=== PATIENT | male | born 1960 | race Caucasian/White ===

== ENCOUNTER 2017-09-08 09:53 | Inpatient (IN) | payer OTHER ==
[~2017-09-08] VITALS: Ht 175.3 cm; Wt 101.0 kg
--- NOTE | 2017-09-08 10:11 | NUR ---
PT TO ROOM FOR EXAM
--- NOTE | 2017-09-08 10:27 | NUR ---
PT SEEN BY EDP, LEFT FOOT EDEMATOUS AND REDDENED.
[2017-09-08] MEDS ORDERED: FOLIC ACID1 MG PO (11:07)
[2017-09-08] MEDS ORDERED: GABAPENTIN600 MG PO (11:08)
[2017-09-08] MEDS ORDERED: SINGULAIR10 MG PO (11:08)
[2017-09-08] MEDS ORDERED: PERCOCET 10/31 COMBO PO (11:09)
[2017-09-08] MEDS ORDERED: TAMSULOSIN HCL0.4 MG PO (11:10)
[2017-09-08] MEDS ORDERED: MELATONIN10 M3 PO (11:10)
[2017-09-08] MEDS ORDERED: ASPIRIN81 MG PO (11:11)
[2017-09-08] MEDS ORDERED: XALATAN0.005 % OU (11:12)
[2017-09-08] MEDS ORDERED: MUPIROCIN2 % EX (11:13)
[2017-09-08] MEDS ORDERED: NICOTINE S21 MG/24 H TOP (11:13)
[2017-09-08] MEDS ORDERED: KURIC2 % EX (11:14)
[2017-09-08] MEDS ORDERED: SILVADENE1 % EX (11:15)
[2017-09-08] MEDS ORDERED: FLOVENT HF110 MCG/AC IN (11:15)
[2017-09-08] MEDS ORDERED: VENTOLIN HFA IN (11:16)
[2017-09-08] MEDS ORDERED: LANTUS100 UNIT/M SC (11:16)
[2017-09-08] MEDS ORDERED: NOVOLOG100 UNIT/M SC (11:17)
[2017-09-08] MEDS ORDERED: VALIUM5 MG PO (11:18)
[2017-09-08 11:20] LABS: HEMATOCRIT 41.1 % (39.0-50.0); HEMOGLOBIN 13.4 g/dl (14.0-18.0); IMMATURE GRANULOCYTES 0.3 % (0.0-1.0); MEAN CELL VOLUME 85.3 fL CALC (80.0-100.0); MEAN CORPUSCULAR HGB 27.8 pG CALC (26.0-32.0); MEAN CORPUSCULAR HGB CONC 32.6 g/L CALC (32.0-36.0); NEUT# 3.38 thou/uL (1.82-7.42); RED BLOOD COUNT 4.82 mill/uL (4.70-6.10); RED CELL DISTRI WIDTH 14.7 % (11.5-15.5)
[2017-09-08 11:35] LABS: ALKALINE PHOSPHATASE 236 u/l (38-126); ANION GAP 19 (6-22 (CALC)); BILIRUBIN, TOTAL 0.4 mg/dL (0.0-1.4); BUN 12 mg/dL (9-20); BUN/CREATININE RATIO 23 (12-20 (CALC)); CARBON DIOXIDE 26 mmol/l (22-30); CHLORIDE 100 mmol/l (95-108); CREATININE 0.5 mg/dL (0.7-1.3); GFR > 60 ML/MIN (>=60 (CALC)); GFR FOR AFR.AMER. > 60 ML/MIN (>=60 (CALC)); GLUCOSE 244 mg/dL (75-110); POTASSIUM 4.7 mmol/l (3.5-5.1); SGOT/AST 29 u/l (17-59); SGPT/ALT 20 u/l (21-72); SODIUM 140 mmol/l (137-146); TOTAL PROTEIN 8.4 g/dL (6.3-8.2)
--- NOTE | 2017-09-08 12:42 | NUR ---
SBAR PRINTED TO FLOOR
[2017-09-08 13:15] VITALS: BP 145/86
--- NOTE | 2017-09-08 13:19 | NUR ---
PT ARRIVED VIA STRETCHER ACCOMPANIED BY STAFF.
--- NOTE | 2017-09-08 13:25 | NUR ---
pt taken TO ROOM 284 WITHOUT INCIDENT, REPORT WAS TO JORGE LUIS.
--- NOTE | 2017-09-08 14:12 | NUR ---
S: LISBET RIVERA is a 56 M who presents with osteomyelitis. He has a history of nodules on lungs, COPD, enlarged prostate, diabetic neuropathy, glaucoma. All medications in patient's chart were reviewed. O: VS: BP 161/89, P 89, RR 18, T 98.1 W 101 kg, HT 69 in, Scr= 0.5, CrCl= 139.1 A: There are no blood or urine cultures on file. P: Patient is on Zosyn 3.375g IV Q6H dose. Vancomycin ordered for pharmacy to dose. Start Vancomycin 1250mg IV Q8H. Vancomycin trough is drawn before the 4th dose on 09/09/17 at 1530. Vancomycin goal trough is between 15-20 mcg/ml. Pharmacy will follow and or advise on antibiotics use as needed.
--- NOTE | 2017-09-08 15:00 | NUR ---
ASSESSMENT IS COMPLETED. SKIN IS INTACT. NO REDNESS. LEFT FOOT HAS +4 PITTING EDEMA NOTED. PICTURES OBTAINED. IV SITE IS FREE FROM REDNESS OR EDEMA. PT INQUIRING ABOUT HIS MEDICATIONS EXPLAINED THAT HOSPITAL POLICY DOES NOT ALLOW US TO KEEP IN THE ROOM VRBALIZED UNDERSTANDING.
--- NOTE | 2017-09-08 16:40 | NUR ---
Saw Pt for med education rounds. Pt complains of neuropathy, restless leg syndrome, and pain. Pt insists he should be on oxycodone for pain and diazepam for anxiety. Pt has a morphine pump attached to his torso. Pt states that he regularly experiences hypoglycemia and subsequent hyperglycemia. Pt was educated on the importance of diabetic control especially with regards to neuropathy and diabetic foot. Pt explains that he is on a sliding scale insulin and takes his BG before meals. Pt was concerned about his leather bag. Pt was told it is in a safe. IVELISSE Gonzalez, was alerted for pt's expressed want for additional medications and went to go talk to him. Pt has no further questions or concerns.
[2017-09-08 16:42] LABS: URINE BILIRUBIN - DIPSTICK NEGATIVE (NEGATIVE); URINE BLOOD DIPSTICK NEGATIVE (NEGATIVE); URINE COLOR YELLOW; URINE GLUCOSE - DIPSTICK 500 mg/dL (NEGATIVE); URINE KETONE NEGATIVE (NEGATIVE); URINE LEUK ESTERASE NEGATIVE (Negative); URINE NITRITE - DIPSTICK NEGATIVE (Negative); URINE PH 6.5 (4.5-8.0); URINE PROTEIN - DIPSTICK NEGATIVE (NEG-TRACE); URINE UROBILINOGEN - DIPSTICK 0.2 E.U./dL (0.2)
[2017-09-08 16:44] LABS: URINE CLARITY CLEAR
[2017-09-08 16:45] LABS: BARBITURATES NEGATIVE (NEGATIVE); COCAINE NEGATIVE (NEGATIVE); METHADONE NEGATIVE (NEGATIVE); OXCYCODONE POSITIVE (NEGATIVE); TETRAHYDROCANNABIONOL NEGATIVE (NEGATIVE); TRICYLIC ANTIDEPRESSANTS NEGATIVE (NEGATIVE)
--- NOTE | 2017-09-08 18:00 | NUR ---
PT IS CURRENTLY IN THE BED AND NO DISTRESS NOTED. IV SITE IS FREE FROM REDNESS OR EDEMA.
[2017-09-08 19:12] VITALS: BP 159/91
--- NOTE | 2017-09-08 19:30 | NUR ---
PT SITTING UP IN BED WATCHING TV. PT IS ALERT AND ORIENTED X3. PERRLA. RESP ARE EVEN AND UNLABORED. NO DISTRESS NOTED. LUNGS ARE CLEAR. HR REGULAR. PULSES PALPABLE THROUGHOUT. NO EDEMA NOTED. BS ACTIVE. PT REPORTS A NOMRAL BM EARLIER TODAY. #22 RFA WITH NS @125ML/HR INFUSING. NO REDNESS OR EDEMA NOTED. WILL CONTINUE TO MONITOR
[2017-09-09] VITALS (11 sets, daily range): BP systolic 140–184; BP diastolic 73–107
--- NOTE | 2017-09-09 | NUR ---
PT RESTING IN BED WITH EYES CLOSED. RESP ARE EVEN AND UNLABORED. NO DISTRESS NOTED. WILL CONTINUE TO MONITOR
--- NOTE | 2017-09-09 04:00 | NUR ---
PT RESTING IN BED WITH EYES CLOSED. RESP ARE EVEN AND UNLABORED. NO DISTRESS NOTED. WILL CONTINUE TO MONTIOR
--- NOTE | 2017-09-09 07:30 | NUR ---
PATIENT IS ALERT AND ORIENTED X3. PUPILS ARE BRISK. PATIENT STATES HE HAS HISTORY OF GLAUCOMA, SLIGHT HAZE NOTED OVER BOTH EYES. HEART SOUNDS AND RHYTHYM ARE REGULAR. RADIAL PULSES ARE STRONG. IV SITE IS FREE OF REDNESS AND EDEMA. BOWEL SOUNDS ARE ACTIVE,LAST BOWEL MOVEMENT 09/08/17. ABDOMEN IS SOFT, MORPHINE PUMP TO LEFT SIDE OF ABDOMEN. PATIENT HAS SWELLING AND REDNESS TO LEFT FOOT WITH 3+ PITTING EDEMA. MULTIPLE SMALL WOUNDS ON LEFT FOOT NOTED TO DORSAL SURFACE AND ARCH, NO DRAINAGE. MID PLANTAR REGION WITH ONE OPEN AREA APPROXIMATELY BRITNEY SIZED, NO DRAINAGE. PATIENT STATES HE HAS PAIN IN LEFT FOOT THAT SOMETIMES RADIATES UP HIS MAGANA RATING 6/10. PATIENT MEDICATED WITH PERCOCET BY MANUFACTURING ENGINEER ASSEMBLY AND DEPARTMENT HEAD, TAM WHALEN. PATIENT HAS WEAK PEDAL PULSE IN LEFT FOOT. RIGHT FOOT DRESSING DRY AND INTACT. PATIENT STATED HE WOULD LIKE TO SHOWER TODAY. PATIENT HAS NO NEEDS OR CONCERNS AT THIS TIME. BED IS IN LOWEST POSITION, SRX2, WHEELS ARE LOCKED, CALL LIGHT WITHIN REACH. INFORMED PATIENT TO CALL FOR ANY NEED. WILL CONTINUE TO MONITOR.
[2017-09-09 07:52] LABS: HEMATOCRIT 38.7 % (39.0-50.0); HEMOGLOBIN 12.3 g/dl (14.0-18.0); IMMATURE GRANULOCYTES 0.2 % (0.0-1.0); MEAN CELL VOLUME 86.6 fL CALC (80.0-100.0); MEAN CORPUSCULAR HGB 27.5 pG CALC (26.0-32.0); MEAN CORPUSCULAR HGB CONC 31.8 g/L CALC (32.0-36.0); NEUT# 3.87 thou/uL (1.82-7.42); RED BLOOD COUNT 4.47 mill/uL (4.70-6.10); RED CELL DISTRI WIDTH 14.7 % (11.5-15.5)
--- NOTE | 2017-09-09 07:55 | NUR ---
ASSESSMETN IS COMPLTED: NO DISTRESS NOTED. IV SITE IS FREE FROM REDNESS OR EDEMA. DRESSING ON R FOOT IS CDI. LEFT FOOT IS OPEN TO AIR. ABD IS SOFT WITH PRESENCE OF THE MORPHINE PUMP. CONTINUE TO OBSERVE AND MONITOR.
[2017-09-09 08:01] LABS: ANION GAP 13 (6-22 (CALC)); BUN 12 mg/dL (9-20); BUN/CREATININE RATIO 18 (12-20 (CALC)); CALCIUM 9.5 mg/dL (8.4-10.2); CARBON DIOXIDE 32 mmol/l (22-30); CHLORIDE 101 mmol/l (95-108); CREATININE 0.6 mg/dL (0.7-1.3); GFR > 60 ML/MIN (>=60 (CALC)); GFR FOR AFR.AMER. > 60 ML/MIN (>=60 (CALC)); GLUCOSE 147 mg/dL (75-110); POTASSIUM 4.8 mmol/l (3.5-5.1); SODIUM 141 mmol/l (137-146)
--- NOTE | 2017-09-09 12:30 | NUR ---
PT IS RELAXING IN BED WITH NO DISTRESS NOTED.
--- NOTE | 2017-09-09 12:43 | NUR ---
IN TO VISIT WITH PT . NEED TO ER SURGERY DUE TO GAS IN THE FOOT. AND POSSIBLY WILL HAVE TO SEND FOR A VASCULAR PHYSICIAN.
--- NOTE | 2017-09-09 13:24 | NUR ---
PT BEING TAKEN TO OR VIA STRETCHER ACCOMPANIED BY STAFF. IV SITE IS FREE FROM REDNESS OR EDEMA. ALL PAPERS SIGNED CONSENT.
--- NOTE | 2017-09-09 15:10 | NUR ---
PT RETURNED FROM OR VIA STRETCHER ACCOMPANIED BY STAFF. IV SITE IS FREE FROM REDNESS OR EDEMA. FOOT IS ON A PILLOW REQUESTING SOMETHING FOR HIS NERVES. GAVE MEDICATION ORDERED.
--- NOTE | 2017-09-09 15:48 | NUR ---
Patient asked for a bag of oxy and valium when I presented myslef as the Pharmacist internal wholesaler as a "joke". Patient stated that he is scared to lose his foot and explained that he failed to follow up with his doctors due to living at a long distance from his Doctors' offices but he also stated that he has his that can help with transportation. patient was advised to follow up with all his Dr office appointments. Patient seemed overly happy "euphoric". Patient was concerned about a prescreption that was written for him and he thought it was a pain prescription.I checked his prescription and it's Ectorin 325. Patient asked about his future pain medications for his foot after he was in the OR today. patient also said he has runny nose, and sinus pressure he asked to take his Singulair but he also has flonase on his medications file. I spoke to Dalton if she would allow him to use his flonase. Patient is on an inhaler he stated he uses for his COPD " Albuterol HFA". Patient was adviced to use his inhaler as prescribed. c
--- NOTE | 2017-09-09 16:46 | NUR ---
Patient was concerned about having some runny nose and I told the SHEETMETAL TRADES WORKER. Patient was advised to use his inhaler as prescribed and to follow up with his doctors' appointments. c
--- NOTE | 2017-09-09 19:23 | NUR ---
MEDICATED WITH HYDRALAZINE 10MG IVP FOR MANUAL BP 182/98 HR 72.
--- NOTE | 2017-09-09 19:30 | NUR ---
BEDSIDE REPORT RECEIVED FROM EVANGELINA KANG. PT SITTING UP IN BED WATCHING TV ALERT AND ORIENTED. DOES NOT VERBALIZE PAIN AT THIS TIME. RESPRIATOIONS EVEN AND UNLABORED. PLAN OF CARE DISCUSSED. PT ENCOURAGED TO VERBALIZE CONCERNS. STATES UNDERSTANDING. SAFETY MEASURES IN PLACE. CALL LIGHT WITHIN REACH.
--- NOTE | 2017-09-09 21:00 | NUR ---
EDUCATED ON INCENTIVE SPIROMETER; AT BEDSIDE. RETURN DEMONSTRATION.
[2017-09-10 00:20] VITALS: BP 120/73
--- NOTE | 2017-09-10 00:28 | NUR ---
PT ASLEEP AT THIS TIME. AWAKENS TO TACTILE STIMULATION. C/O GENERALIZED PAIN AND ASKS TO HAVE HIS PRN PERCOCET SOON HE CAN. RESPIRATIONS EVEN AND UNLABORED. ABT INFUSING AT THIS TIME WITH NO ADVERSE EFFECTS NOTED; IV SITE APPEARS HEALTHY. HAS NO OTHER REQUESTS AT THIS TIME. CALL LIGHT WITHIN REACH.
--- NOTE | 2017-09-10 02:27 | NUR ---
PT STATES THAT HE FEELS LIKE HIS SUGER IS "CRASHING." FINGER STICK BLOOD GLUCOSE IS 61 AT THIS TIME. SNACK GIVEN. WILL CONTINUE TO MONITOR FOR HYPER AND HYPOGLYCEMIA.
--- NOTE | 2017-09-10 04:10 | NUR ---
PT IS ALSEEP AT THIS TIME WITH NO SIGNS OF DISCOMFORT NOTED. RESPIRATIONS EVEN AND UNLABORED. DRESSING TO LEFT FOOT REMAINS CDI. SAFETY MEASURES IN PLACE. CALL LIGHT WITHIN REACH.
[2017-09-10 04:34] VITALS: BP 126/84
[2017-09-10 06:29] LABS: HEMATOCRIT 38.9 % (39.0-50.0); HEMOGLOBIN 12.4 g/dl (14.0-18.0); IMMATURE GRANULOCYTES 0.2 % (0.0-1.0); MEAN CELL VOLUME 85.5 fL CALC (80.0-100.0); MEAN CORPUSCULAR HGB 27.3 pG CALC (26.0-32.0); MEAN CORPUSCULAR HGB CONC 31.9 g/L CALC (32.0-36.0); NEUT# 6.19 thou/uL (1.82-7.42); RED BLOOD COUNT 4.55 mill/uL (4.70-6.10); RED CELL DISTRI WIDTH 14.8 % (11.5-15.5)
--- NOTE | 2017-09-10 07:19 | NUR ---
BEDSIDE REPORT RECEIVED FROM EVANGELINA MAYES. PT SLEEPING AT THIS TIME. CALL LIGHT WITHIN REACH. WILL CONTINUE TO MONITOR.
[2017-09-10 08:02] VITALS: BP 148/82
--- NOTE | 2017-09-10 08:34 | NUR ---
PT SITTING UPRIGHT IN BED. REPROTS MODERATE PAIN TO LEFT FOOT. PERCOCET PO ADMINISTERED PER ORDER. REPORTING OF FURTHER CONCERNS ENCOURAGED. PT REPORTS USING IS Q1HR X 10 WA. ACHIEVING 2000 ML INCENTIVE VOLUME, GOAL OF 2500 ML. FALL PRECAUTIONS AND ONLY GETTING UP WITH ASSIST R/T NWB ON LEFT FOOT REVIEWED. PT STATES UNDERSTANDING.
--- NOTE | 2017-09-10 09:26 | NUR ---
Vancomycin single level analysis: Current dose being given: 1250 mg Current dosing interval: 8 hrs Current infusion time (hrs): 2 Single level Trough Data: Trough level obtained: 16 mcg/ml CONTINUE Vancomycin 1250 mg q 8 hrs. Infuse over 2 hrs NEXT TROUGH WILL BE 09/12/17 @0437
--- NOTE | 2017-09-10 11:30 | NUR ---
DR. SANDOVAL IN TO SEE PT AT THIS TIME.
[2017-09-10 15:27] VITALS: BP 130/82
--- NOTE | 2017-09-10 16:10 | NUR ---
PT SUPINE IN BED. REPORTS CONSTIPATION. DR. SANDOVAL NOTIFIED. ORDER FOR MIRALAX OBTAINED, MED ADMINISTERED. WILL CONTINUE TO MONITOR.
--- NOTE | 2017-09-10 19:34 | NUR ---
BEDSIDE REPORT RECEIVED FROM TAM AGUILAR. PT SITTING UP IN BED WATCHING TV; ALERT AND ORIENTED. C/O MILD GENERALIZED PAIN; STATES THAT PERCOCET WAS EFFECTIVE. RESPIRATIONS EVEN AND UNLABORED ON ROOM AIR. DRESSING TO LEFT FOOT CDI. ICE APPLIED. PLAN OF CARE REVIEWED. PT ENCOURAGED TO VERBALIZE CONCERNS. STATES UNDERSTANDING. SAFETY MEASURES IN PLACE. CALL LIGHT WITHIN REACH.
--- NOTE | 2017-09-10 21:30 | NUR ---
PT PIVOTED OUT OF BED TO WITH ASSIST. BED LINENS CHANGED. BEDTIME SNACK GIVEN. PT ASSISTED BACK TO BED. BED IN LOW POSITION AND CALL LIGHT IN REACH. DENIES ANY NEEDS AT THIS TIME.
--- NOTE | 2017-09-11 00:51 | NUR ---
PT ASLEEP AT THIS TIME WITH NO DISTRESS NOTED. RESPIRATIONS EVEN AND UNLABORED. ABT INFUSING AT THIS TIME WITH ADVERSE EFFECTS NOTED. AFEBRILE. PERCOCET GIVEN FOR C/O GENERALIZED PAIN AND LEFT FOOT PAIN WITH GOOD EFFECT. IV SITE APPEARS HEALTHY. SAFETY MEASURES IN PLACE. CALL LIGHT WITHIN REACH.
--- NOTE | 2017-09-11 04:19 | NUR ---
PT ASLEEP AT THIS TIME WITH NO SIGNS OF DISTRESS. RESPIRATIONS EVEN AND UNLABORED. NO SIGNS OF HYPOGLYCEMIA. PT WAKES UP TO REQUESTS PERCOCET EVERY FEW HOURS. DRESSING TO LEFT FOOT REMAINS CDI. ICE APPLIED INTERMITTENTLY. SAFETY MEASURES IN PLACE. CALL LIGHT WITHIN REACH.
--- NOTE | 2017-09-11 04:48 | NUR ---
PT STATED THAT HE FELT LIKE HIS SUGAR WAS DROPPING. FINGER STICK BLOOD GLUCOSE READ 59. SNACK GIVEN. WILL FOLLOW UP.
[2017-09-11 05:22] LABS: HEMATOCRIT 37.6 % (39.0-50.0); HEMOGLOBIN 11.9 g/dl (14.0-18.0); IMMATURE GRANULOCYTES 0.2 % (0.0-1.0); MEAN CELL VOLUME 86.2 fL CALC (80.0-100.0); MEAN CORPUSCULAR HGB 27.3 pG CALC (26.0-32.0); MEAN CORPUSCULAR HGB CONC 31.6 g/L CALC (32.0-36.0); NEUT# 2.34 thou/uL (1.82-7.42); RED BLOOD COUNT 4.36 mill/uL (4.70-6.10)
[2017-09-11 05:30] VITALS: BP 153/85
[2017-09-11 05:40] LABS: ANION GAP 6 (6-22 (CALC)); BUN 13 mg/dL (9-20); BUN/CREATININE RATIO 21 (12-20 (CALC)); CALCIUM 8.8 mg/dL (8.4-10.2); CARBON DIOXIDE 31 mmol/l (22-30); CHLORIDE 109 mmol/l (95-108); CREATININE 0.6 mg/dL (0.7-1.3); GFR > 60 ML/MIN (>=60 (CALC)); GFR FOR AFR.AMER. > 60 ML/MIN (>=60 (CALC)); GLUCOSE 64 mg/dL (75-110); POTASSIUM 3.9 mmol/l (3.5-5.1); SODIUM 141 mmol/l (137-146)
--- NOTE | 2017-09-11 07:37 | NUR ---
REPORT RECEIVED FROM EVANGELINA MAYES. PT SITTING UPRIGHT IN BED. STATES "ABOUT TIME FOR SOME MEDICINE, AINT IT?" MEDICATIONS SCHEDULES REVIEWED. PLAN OF CARE DISCUSSED. REPORTING OF CONCERNS ENCORUAGED. CALL LIGHT REVIEWED AND IN REACH. PT STATES UNDERSTANDING.
[2017-09-11 07:41] VITALS: BP 135/79
[2017-09-11] MEDS ORDERED: BACTRIM DS1 TAB PO (11:09)
--- NOTE | 2017-09-11 13:08 | NUR ---
Discharge instructions given. Patient verbalizes understanding of same. Discharged in stable condition via Wheelchair to Home with family. All belongings sent with pt.
== END 2017-09-11 12:45 | disposition home or self-care (01) | DRG 987 ==
LOC: ED 09:53 → ED-I 12:20 → ED 12:47 → MS2 12:48
PROVIDERS: Emergency Medicine; Internal Medicine; Nurse Practitioner Family; ADMIT Internal Medicine; ATTEND Internal Medicine
PROC: 0J9R0ZZ Drainage of Left Foot Subcutaneous Tissue and Fascia, Open Approach (ICD-10-PCS; principal; 2017-09-09)
DX: E11.52 Type 2 diabetes mellitus with diabetic peripheral angiopathy with gangrene (principal); A48.0 Gas gangrene; E11.42 Type 2 diabetes mellitus with diabetic polyneuropathy; E11.621 Type 2 diabetes mellitus with foot ulcer; L03.116 Cellulitis of left lower limb; L02.612 Cutaneous abscess of left foot; L97.429 Non-pressure chronic ulcer of left heel and midfoot with unspecified severity; E11.628 Type 2 diabetes mellitus with other skin complications; E11.610 Type 2 diabetes mellitus with diabetic neuropathic arthropathy; F17.210 Nicotine dependence, cigarettes, uncomplicated; I10 Essential (primary) hypertension; E11.65 Type 2 diabetes mellitus with hyperglycemia; J44.9 Chronic obstructive pulmonary disease, unspecified; H40.9 Unspecified glaucoma; R91.8 Other nonspecific abnormal finding of lung field; N40.0 Benign prostatic hyperplasia without lower urinary tract symptoms; G89.4 Chronic pain syndrome; Z89.422 Acquired absence of other left toe(s); Z79.4 Long term (current) use of insulin; Z79.891 Long term (current) use of opiate analgesic
CPT/HCPCS: J0692; J3370

== ENCOUNTER 2017-11-13 10:50 | Observation (INO) | payer OTHER ==
[~2017-11-13] VITALS: Ht 175.3 cm; Wt 106.2 kg
[~2017-11-13 10:50] MED LIST: ASPIRIN81 MG PO; BACTRIM DS1 TAB PO; FLOVENT HF110 MCG/AC IN; FOLIC ACID1 MG PO; GABAPENTIN600 MG PO; KURIC2 % EX; LANTUS100 UNIT/M SC; MELATONIN10 M3 PO; MUPIROCIN2 % EX; NICOTINE S21 MG/24 H TOP; NOVOLOG100 UNIT/M SC; PERCOCET 10/31 COMBO PO; SILVADENE1 % EX; SINGULAIR10 MG PO; TAMSULOSIN HCL0.4 MG PO; VALIUM5 MG PO; VENTOLIN HFA IN; XALATAN0.005 % OU
--- NOTE | 2017-11-13 11:00 | NUR ---
PT TO ROOM VIA WHEELCHAIR.
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
[2017-11-13 11:36] LABS: HEMATOCRIT 43.4 % (39.0-50.0); IMMATURE GRANULOCYTES 0.2 % (0.0-1.0); MEAN CELL VOLUME 85.9 fL CALC (80.0-100.0); MEAN CORPUSCULAR HGB 27.9 pG CALC (26.0-32.0); MEAN CORPUSCULAR HGB CONC 32.5 g/L CALC (32.0-36.0); NEUT# 4.42 thou/uL (1.82-7.42); RED BLOOD COUNT 5.05 mill/uL (4.70-6.10); RED CELL DISTRI WIDTH 16.2 % (11.5-15.5)
[2017-11-13 11:41] LABS: HEMOGLOBIN 14.1 g/dl (14.0-18.0)
[2017-11-13 11:51] LABS: ANION GAP 18 (6-22 (CALC)); BUN 19 mg/dL (9-20); BUN/CREATININE RATIO 30 (12-20 (CALC)); CARBON DIOXIDE 30 mmol/l (22-30); CHLORIDE 98 mmol/l (95-108); CREATININE 0.6 mg/dL (0.7-1.3); GFR > 60 ML/MIN (>=60 (CALC)); GFR FOR AFR.AMER. > 60 ML/MIN (>=60 (CALC)); SODIUM 141 mmol/l (137-146)
--- NOTE | 2017-11-13 12:55 | NUR ---
PT RESTING QUIETLY ON STRETCHER.
--- NOTE | 2017-11-13 13:36 | NUR ---
SBAR PRINTED TO FLOOR
[2017-11-13] MEDS ORDERED: TIZANIDINE HCL4 M1 PO (13:49)
[2017-11-13] MEDS ORDERED: LISINOPRIL10 MG PO (13:50)
[2017-11-13] MEDS ORDERED: CARVEDILOL3.125 MG PO (13:51)
[2017-11-13] MEDS ORDERED: LEVEMIR100 UNIT/M SC (13:55)
--- NOTE | 2017-11-13 13:56 | NUR ---
PT STATES PAIN HAS LESSENED. RECONCILED MEDS MUCH POSSIBLE, PT HAS SOME MEDS WITH HIM. SOME HE LEFT AT HOME.
--- NOTE | 2017-11-13 14:35 | NUR ---
REPORT GIVEN TO MS FOR CONTINUATION OF CARE.
--- NOTE | 2017-11-13 15:15 | NUR ---
FROM ER VIA WHEELCHAIR ACCOMPANIED BY LACHO TURCIOS. TRANSFERRED TO BED WITH STAND BY ASSIST, NON WEIGHT BEARING LEFT FOOT. DRESSING TO LEFT FOOT CDI. RESPS EVEN AND UNLABORED ON ROOM AIR. DENIES PAIN OR DISCOMFORT. ORIENTED TO ROOM AND CALL SYSTEM. SAFETY PRECAUTONS REINFORCED. BED IN LOWEST POSITION WITH WHEELS LOCKED. CALL LIGHT WITHIN REACH, ENCOURAGED PT TO CALL FOR ANY NEEDS.
--- NOTE | 2017-11-13 15:19 | NUR ---
PT TAKEN TO FLOOR WITH HIS OWN WHEELCHAIR AND CPAP, MEDICATIONS, CLOTHING.
[2017-11-13 15:26] VITALS: BP 146/91
--- NOTE | 2017-11-13 15:30 | NUR ---
DR BRITT AT BEDSIDE, NEW ORDERS RECEIVED.
--- NOTE | 2017-11-13 17:30 | NUR ---
MEDICATED WITH PERCOCET PO FOR C/O 6 LEFT FOOT PAIN. CALL LIGHT WITHIN REACH. WILL CONTINUE TO MONITOR.
--- NOTE | 2017-11-13 19:00 | NUR ---
REPORT RECEIVED FROM TAM HALL. PT SITTING UP IN BED. DENIES NEEDS AT THIS TIME. BED IN LOW POSITION, CALL LIGHT IN REACH. POC GIVEN. WILL CONTINUE TO MONITOR.
[2017-11-13 19:30] VITALS: BP 155/98
--- NOTE | 2017-11-14 01:25 | NUR ---
2343 IV FLUSHED WITH DIFFICULTY, NO INFILTRATION. ZOSYN STARTED PER EMAR. NOT INFUSING. 0000 SUGEY RN TRIED WITHOUT SUCCESS TO START NEW IV X2. TOOK TAPE OFF LAC IV TO ADJUST. IV SITE FLUSHED WELL WHEN PULLED BACK. TAPED BACK IN PLACE. IV NOT RUNNING, ALARM CONTINUOSLY SOUNDING. 0110 TAM ABREU FROM ER STARTED NEW IV RT/ FA. ZOSYN RUNNING WITHOUT ISSUE.
--- NOTE | 2017-11-14 01:46 | NUR ---
ZOSYN COMPLETE, FLUSHED, VANCO STARTED.
[2017-11-14 04:00] VITALS: BP 156/91
--- NOTE | 2017-11-14 07:00 | NUR ---
PT AWAKE, SITTING IN BED WATCHING TV. BED IN LOW POSTION, CALL LIGHT IN REACH. REPORT GIVEN TO TAM HALL.
--- NOTE | 2017-11-14 07:00 | NUR ---
RECEIVED BEDSIDE REPORT FROM HUSSAIN TURCIOS. IN SEMI FOWLERS WITH LEFT LEG ELEVATED ON PILLOWS, WATCHING TV. RESPS EVEN AND UNLABORED ON ROOM AIR. VOICES NO NEEDS AT THIS TIME. PLAN OF CARE DISCUSSED. SAFTEY PRECAUTIONS REINFORCED. BED IN LOWEST POSITION WITH WHEELS LOCKED. CALL LIGHT WITHIN REACH. ENCOURAGED PT TO CALL FOR ANY NEEDS.
[2017-11-14 07:44] VITALS: BP 188/91
--- NOTE | 2017-11-14 07:44 | NUR ---
Vancomycin consult Age: 57 years Weight: 106.2 kg Height: 175.26 cm Gender: Male SCR: 0.6 mg/dl Dosing weight: 84.9 kg IBW: 70.70 kg CRCL (ml/min): 137.5 Khoi (hr-1): 0.119 Half-life (hrs): 5.82 Vd (liters): 74.34 (factor: 0.7 L/kg) Vancomycin 1500 mg q8 hrs to produce a predicted peak of 29 mcg/ml and a predicted trough of 14 mcg/ml based on (Population-based pharmacokinetic analysis).
--- NOTE | 2017-11-14 11:40 | NUR ---
RESTING IN SEMI FOWLERS WITH LEFT FOOT ELEVATED ON PILLOWS. DRESSING TO LEFT FOOT CDI. #22 RFA INFUSING WITHOUT DIFFICULTY, SITE APPEARS HEALTHY. MEDICATED WITH PERCOCET PO FOR C/O 6/[address] KENNEY AT BEDSIDE, NEW ORDERS RECEIVED. CALL LIGHT WITHIN REACH. WILL CONTINUE TO MONITOR.
--- NOTE | 2017-11-14 13:40 | NUR ---
DR DE SANTIAGO AT BEDSIDE, DRESSING CHANGE BY . AWAITING NEW ORDERS.
--- NOTE | 2017-11-14 15:30 | NUR ---
IN BED ON RIGHT SIDE WITH EYES CLOSED, AWAKENS EASILY. RESPS EVEN AND UNLABORED ON ROOM AIR. VOICES NO NEEDS AT THIS TIME. CALL LIGHT WITHIN REACH. WILL CONTINUE TO MONITOR.
[2017-11-14 16:00] VITALS: BP 129/84
--- NOTE | 2017-11-14 17:45 | NUR ---
PT REPORTS BILATERAL FEET PAIN RATING 6/10 ON THE PAIN SCALE AND REQUESTS PAIN MEDICATION;PT MEDICATED WITH PRN PERCOCET 10/325MG 1 COMBO,WILL MONITOR FOR EFFECTIVENESS
--- NOTE | 2017-11-14 19:32 | NUR ---
PT RESTING IN SEMI-FOWLERS POSITION. PT ALERT AND ORIENTED. RESP EVEN AND UNLABORED; NO DISTRESS NOTED. LUNGS CLEAR BILAT. ABD DISTENDED; SOFT. ACTIVE BOWEL SOUNDS NOTED. PEDAL PULSE PALPATED RIGHT FOOT. LEFT FOOT DRESSING CDI; TRACE EDEMA NOTED.PT HAS FOOT ELEVATED. IV RFA PATENT; FLUSHED WITHOUT DIFFICULTY. SAFETY PRECAUTIONS REINFORCED. FREQUENT ROUNDS MADE. CALL LIGHT WITHIN REACH.
[2017-11-14 21:05] VITALS: BP 180/96
--- NOTE | 2017-11-14 21:10 | NUR ---
NOTIFIED OF PT VITALS; NO ORDER RECIEVED AT THIS TIME.
[2017-11-14 22:14] VITALS: BP 148/86
--- NOTE | 2017-11-15 | NUR ---
RESP EVEN AND UNLABORED. IV PATENT; NO REDNESS OR EDEMA NOTED. CALL LIGHT WITHIN REACH.
[2017-11-15 04:11] VITALS: BP 136/72
--- NOTE | 2017-11-15 04:11 | NUR ---
ASSESSMENT UNCHANGED; RESP EVEN AND UNLABORED WITH CPAP IN PLACE. PT DENIES PAIN. CALL LIGHT WITHIN REACH.
[2017-11-15 05:42] LABS: HEMATOCRIT 42.3 % (39.0-50.0); HEMOGLOBIN 14.1 g/dl (14.0-18.0); IMMATURE GRANULOCYTES 0.2 % (0.0-1.0); MEAN CELL VOLUME 84.4 fL CALC (80.0-100.0); MEAN CORPUSCULAR HGB 28.1 pG CALC (26.0-32.0); MEAN CORPUSCULAR HGB CONC 33.3 g/L CALC (32.0-36.0); NEUT# 3.51 thou/uL (1.82-7.42); RED BLOOD COUNT 5.01 mill/uL (4.70-6.10)
[2017-11-15 05:49] LABS: ANION GAP 18 (6-22 (CALC)); BUN 14 mg/dL (9-20); BUN/CREATININE RATIO 23 (12-20 (CALC)); CARBON DIOXIDE 28 mmol/l (22-30); CHLORIDE 102 mmol/l (95-108); CREATININE 0.6 mg/dL (0.7-1.3); GFR > 60 ML/MIN (>=60 (CALC)); GFR FOR AFR.AMER. > 60 ML/MIN (>=60 (CALC)); MAGNESIUM 2.1 mg/dL (1.6-2.3); POTASSIUM 4.4 mmol/l (3.5-5.1); SODIUM 143 mmol/l (137-146)
[2017-11-15 08:00] VITALS: BP 155/90
--- NOTE | 2017-11-15 08:30 | NUR ---
Pt. alert to person, place, time. IV site patent, no redness/swelling noted at this time, flushed with ease. Pt reports pain of "7" on 1-10 scale pt, states stabbing, throbbing constantly. VSS, skin dry with rash BUE, pt denies itching or discomfort. Left foot offloaded with dressing clean, dry /intact. Takes PO fluids without difficulty. Pt resting in bed with call light in place, bed in lowest position. will continue to monitor.
--- NOTE | 2017-11-15 09:00 | NUR ---
Pt medicated per request x 1 for pain "7" on 1-10 scale. Pt stated no relief. Pt "I never get any relief". Pt resting with eyes closed upon enter room, VSS. IV site clean dry, intact. call light in reach, will continue to monitor.
[2017-11-15 09:18] VITALS: BP 155/90
--- NOTE | 2017-11-15 11:30 | NUR ---
IV antibiotics infused without difficulty, VSS, Pt. showered, states " I feel so much better". Pt resting in bed with tv on eating lunch. Call light in reach, verbalized no further needs at this time.
[2017-11-15] MEDS ORDERED: AUGMENTIN875TAB PO (13:07)
--- NOTE | 2017-11-15 13:30 | NUR ---
Pt vanco trough 21H, pharmacy notified, vanco not given per pharmacy. pt states "I'm ready to go home." Pt education done at bedside about antibiotics to be taken at home, mitra delivered new script to bedside.Pt sitting at bedside in wheelchair with call light in reach. will continue to monitor.
--- NOTE | 2017-11-15 15:30 | NUR ---
Discharge instructions given. Patient verbalizes understanding of same. Discharged in stable condition via Wheelchair to Home with volunteer. All belongings sent with pt.
== END 2017-11-15 15:45 | disposition home health service (06) | DRG 623 ==
LOC: ED 10:50 → ED-I 13:18 → ED 13:29 → MS2 13:30
PROVIDERS: Family Medicine; Nurse Practitioner Family; ADMIT Hospitalist; ATTEND Hospitalist
PROC: 0JBR0ZZ Excision of Left Foot Subcutaneous Tissue and Fascia, Open Approach (ICD-10-PCS; principal; 2017-11-14)
DX: E11.628 Type 2 diabetes mellitus with other skin complications (principal); L97.428 Non-pressure chronic ulcer of left heel and midfoot with other specified severity; E11.42 Type 2 diabetes mellitus with diabetic polyneuropathy; E11.621 Type 2 diabetes mellitus with foot ulcer; L03.116 Cellulitis of left lower limb; E11.610 Type 2 diabetes mellitus with diabetic neuropathic arthropathy; F17.290 Nicotine dependence, other tobacco product, uncomplicated; I10 Essential (primary) hypertension; J44.9 Chronic obstructive pulmonary disease, unspecified; G89.4 Chronic pain syndrome; E11.65 Type 2 diabetes mellitus with hyperglycemia; Z91.19 Patient's noncompliance with other medical treatment and regimen; Z79.4 Long term (current) use of insulin; H40.9 Unspecified glaucoma
CPT/HCPCS: G0378; J3370

== ENCOUNTER 2017-11-24 13:24 | Emergency (ER) | payer OTHER ==
[~2017-11-24] VITALS: Ht 175.3 cm; Wt 105.0 kg
[~2017-11-24 13:24] MED LIST changes: +AUGMENTIN875TAB PO; +CARVEDILOL3.125 MG PO; +LEVEMIR100 UNIT/M SC; +LISINOPRIL10 MG PO; +TIZANIDINE HCL4 M1 PO
[2017-11-24 13:39] VITALS: BP 179/109
== END 2017-11-24 14:15 | disposition home or self-care (01) | DRG 605 ==
LOC: ED 13:24
DX: S50.812A Abrasion of left forearm, initial encounter (principal); S60.512A Abrasion of left hand, initial encounter; X58.XXXA Exposure to other specified factors, initial encounter

== ENCOUNTER 2018-05-10 10:00 | Outpatient (RCR) | payer OTHER ==
[~2018-05-10] VITALS: Ht 175.3 cm; Wt 112.9 kg
== END 2018-05-10 11:00 | disposition home or self-care (01) ==
LOC: OPWC 10:00
PROVIDERS: ATTEND Podiatrist Foot & Ankle Surgery
DX: L97.421 Non-pressure chronic ulcer of left heel and midfoot limited to breakdown of skin (principal); Z48.00 Encounter for change or removal of nonsurgical wound dressing
CPT/HCPCS: G0463

== ENCOUNTER 2018-05-23 09:30 | Outpatient (RCR) | payer OTHER ==
[~2018-05-23] VITALS: Ht 175.3 cm; Wt 123.4 kg
== END 2018-05-23 10:30 | disposition home or self-care (01) ==
LOC: OPWC 09:30
PROVIDERS: ATTEND Podiatrist Foot & Ankle Surgery
DX: L97.421 Non-pressure chronic ulcer of left heel and midfoot limited to breakdown of skin (principal); Z48.00 Encounter for change or removal of nonsurgical wound dressing
CPT/HCPCS: G0463

== ENCOUNTER 2018-10-10 08:00 | Outpatient (RCR) | payer OTHER | END 2018-10-10 09:00 | disposition home or self-care (01) | LOC: PT 08:00 | PROVIDERS: ATTEND Nurse Practitioner Family | DX: R26.2 Difficulty in walking, not elsewhere classified (principal); M54.5 Low back pain; M79.605 Pain in left leg; M79.604 Pain in right leg ==

== ENCOUNTER 2018-10-10 09:00 | Outpatient (RCR) | payer OTHER | END 2018-10-10 10:00 | disposition home or self-care (01) | LOC: OT 09:00 | PROVIDERS: ATTEND Nurse Practitioner Family | DX: R26.2 Difficulty in walking, not elsewhere classified (principal); M54.5 Low back pain; M79.605 Pain in left leg; M79.604 Pain in right leg ==